=== PATIENT | male | born 1970 | race Caucasian/White ===

== ENCOUNTER 2016-11-13 09:49 | Observation (INO) ==
[2016-11-13] MEDS ORDERED: 0.9 % Sodium Chloride 1,000 ML IVC ONE (10:05)
[2016-11-13] MEDS ORDERED: Ondansetron 4 MG/2 ML VIAL IVP ONE (10:06)
--- NOTE | 2016-11-13 10:15 | Emergency Department Note ---
Disposition Clinical Impression: Bradycardia, Lightheadedness, Generalized weakness Disposition: Admitted As Inpatient Condition: Fair Time of Disposition: 14:00 General Adult HPI - General Chief complaint: ED Weakness Stated complaint: sweating, weakness x2 weeks Time Seen by Provider: 11/13/16 09:59 Source: patient Limitations: no limitations Nursing Notes Reviewed: Yes Vital Signs Reviewed: Yes - History of Present Illness HPI Narrative: Patient is a 45-year-old male past medical history for cardiac events or CVA. Patient complains of head pressure with pressure behind his eyes without vision changes, lightheadedness without dizziness, numbness tingling in bilateral upper extremities and fingertips, and left arm weakness intermittently. Patient currently not having symptoms but states the symptoms coming go randomly and lasts approximately 30 minutes. Patient also describes some facial flushing with events. Patient states he has had vertigo in the past and this does not feel like vertigo. Patient started on lisinopril for mild hypertension 2 weeks ago by his PCP. Patient still having symptoms. Patient admits to chewing tobacco use, but denies illicit drug use, alcohol use Pain Scale: 1 - Related Data Home Medications Medication Instructions Recorded Confirmed Lisinopril [Zestril] 5 mg PO DAILY 11/13/16 11/13/16 Loratadine [Claritin] 10 mg PO DAILY 11/13/16 11/13/16 Allergies Allergy/AdvReac Type Severity Reaction Status Date / Time No Known Allergies Allergy Verified 11/13/16 09:53 All systems ED: reviewed and negative except as stated. Review of Systems: As Per HPI Constitutional: Denies: fever Eyes: Denies: eye pain (Pressure behind eyes), vision change ENT ED: Denies: throat pain, congestion Cardiovascular: Reports: chest pain. Denies: palpitations Respiratory: Denies: cough, dyspnea, wheezes Gastrointestinal: Reports: nausea. Denies: abdominal pain, vomiting Genitourinary: Denies: urgency, dysuria, frequency Musculoskeletal: Denies: back pain, neck pain Integumentary: Denies: rash Neurological: Denies: headache (Head pressure but denies pain) Past Medical History - Past Medical History Attestation: Yes The following information was validated with the patient. Source: patient Medical history: Reports: no medical history, hypertension Psychiatric history: Reports: no psych history - Social History Smoking Status: Never smoker Smokeless Tobacco Status: Yes Alcohol use: Reports: occasionally Drug use: Reports: none Physical Exam - General Limitations: no limitations General appearance: alert - Head Head exam: atraumatic, normocephalic, normal inspection - Eye Eye exam: Present: normal appearance, PERRL, EOMI - ENT ENT exam: normal exam, normal oropharynx, mucous membranes moist - Neck Neck exam: Present: normal inspection, full ROM, trachea midline - Chest Chest inspection: Present: normal inspection, symmetric chest wall rise - Respiratory Respiratory exam: Present: normal lung sounds bilaterally - Cardiovascular Cardiovascular exam: Present: regular rate, normal rhythm, normal heart sounds - Abdominal Exam Abdominal exam: Present: soft, Non-Tender. Absent: tenderness, distention, guarding, rebound, rigidity - Extremities Exam Extremities exam: Present: normal inspection, full ROM. Absent: tenderness, pedal edema - Expanded Lower Extremity Exam Hip/Pelvis exam: Present: normal inspection, full ROM - Back Exam Back exam: Present: normal inspection, full ROM. Absent: tenderness - Neurological Exam Neurological exam: Present: alert, oriented X3, CN II-XII intact, normal gait. Absent: motor sensory deficit - Skin Skin exam: Present: warm, dry, intact, normal color Course - Reevaluation(s) Reevaluation #1: Labs and imaging ordered. Time: 10:20 Vital Signs Temperature 97.6 F 11/13/16 09:53 Pulse Rate 59 11/13/16 09:53 Respiratory Rate 20 11/13/16 09:53 Blood Pressure 153/95 11/13/16 09:53 O2 Sat by Pulse Oximetry 99 11/13/16 09:53 Temperature 98.0 F 11/13/16 18:49 Pulse Rate 59 11/13/16 18:49 Respiratory Rate 16 11/13/16 18:49 Blood Pressure 124/72 11/13/16 18:51 O2 Sat by Pulse Oximetry 98 11/13/16 18:49 Oxygen Delivery Oxygen Delivery Room Air Medical Decision Making - [facility] Narrative Medical decision making narrative: Patient concern for dysrhythmia causing transient weakness and near syncope. Patient's workup: Labs negative finding on CBC, BMP negative troponin, negative TSH. Chest x-ray showed no abnormalities. The patient still bradycardic rate of [address] elevations or depressions. Patient has accepted this is for admission for further workup. Advanced imaging: Chest X-Ray 11/13/16 10:06 IMPRESSION: No acute cardiopulmonary process D/ / 11/13/2016 10:45:53 Maximiliano Curiel MD / [facility] Interpreting Provider: Maximiliano Curiel MD Head CT 11/13/16 10:15 IMPRESSION: No acute intracranial abnormality. D/ / Nelson Erazo MD / Nelson Erazo MD Interpreting Provider: Nelson Erazo MD Patient was accepted for admission by Dr. Chow the hospitalist - Lab Data Lab results reviewed: Yes I reviewed the patient's lab results. Lab results narrative: Short CBC 11/13/16 Range/Units 10:36 WBC 5.3 (4.3-11.1) K/mcL Hgb 16.6 (12.9-16.9) g/dL Hct 48.5 (37.5-50.1) % Plt Count 163 (140-400) K/mcL Neutrophils # 3.6 (1.6-8.9) K/mcL BMP 11/13/16 Range/Units 10:36 Sodium 139 (136-145) mEq/L Potassium 4.1 (3.5-4.5) mEq/L Chloride 106 (98-109) mEq/L Carbon Dioxide 26 (19-29) mEq/L BUN 12 (8-26) mg/dL Creatinine 0.96 (0.72-1.25) mg/dL Glucose 89 (70-99) mg/dL Calcium 9.4 (8.6-10.8) mg/dL Cardiac Enzymes 11/13/16 Range/Units 10:36 Troponin I 0.01 (0-0.03) ng/mL Result diagrams: 11/13/16 10:36 11/13/16 10:36 Lab Results 11/13/16 11/13/16 11/13/16 Range/Units 10:36 10:36 10:36 WBC 5.3 (4.3-11.1) K/mcL RBC 5.89 H (4.19-5.50) M/mcL Hgb 16.6 (12.9-16.9) g/dL Hct 48.5 (37.5-50.1) % MCV 82.3 L (83.0-100.0) fL MCH 28.2 (28.0-33.3) pg MCHC 34.2 (31.6-35.5) g/dL RDW 12.7 (11.5-14.5) % Plt Count 163 (140-400) K/mcL MPV 10.3 (9.4-12.4) fL Immature Gran % 0.4 (0-4) % Seg Neutrophils % 68.3 % Lymphocytes % 22.4 % Monocytes % 7.7 % Eosinophils % 0.4 % Basophils % 0.8 % Neutrophils # 3.6 (1.6-8.9) K/mcL Lymphocytes # 1.2 (0.6-4.6) K/mcL Monocytes # 0.4 (0.0-1.3) K/mcL Eosinophils # 0.0 (0.0-0.6) K/mcL Basophils # 0.0 (0.0-0.2) K/mcL Sodium 139 (136-145) mEq/L Potassium 4.1 (3.5-4.5) mEq/L Chloride 106 (98-109) mEq/L Carbon Dioxide 26 (19-29) mEq/L BUN 12 (8-26) mg/dL Creatinine 0.96 (0.72-1.25) mg/dL Est GFR ( Amer) > 60 (> 60) Est GFR (Non-Af Amer) > 60 (> 60) BUN/Creatinine Ratio 13 (6-26) Glucose 89 (70-99) mg/dL Calculated Osmolality 287 (280-300) Calcium 9.4 (8.6-10.8) mg/dL Troponin I 0.01 (0-0.03) ng/mL Lipase (8-78) Units/L TSH 1.211 (0.350-4.840) mcIU/mL 11/13/16 Range/Units 10:36 WBC (4.3-11.1) K/mcL RBC (4.19-5.50) M/mcL Hgb (12.9-16.9) g/dL Hct (37.5-50.1) % MCV (83.0-100.0) fL MCH (28.0-33.3) pg MCHC (31.6-35.5) g/dL RDW (11.5-14.5) % Plt Count (140-400) K/mcL MPV (9.4-12.4) fL Immature Gran % (0-4) % Seg Neutrophils % % Lymphocytes % % Monocytes % % Eosinophils % % Basophils % % Neutrophils # (1.6-8.9) K/mcL Lymphocytes # (0.6-4.6) K/mcL Monocytes # (0.0-1.3) K/mcL Eosinophils # (0.0-0.6) K/mcL Basophils # (0.0-0.2) K/mcL Sodium (136-145) mEq/L Potassium (3.5-4.5) mEq/L Chloride (98-109) mEq/L Carbon Dioxide (19-29) mEq/L BUN (8-26) mg/dL Creatinine (0.72-1.25) mg/dL Est GFR ( Amer) (> 60) Est GFR (Non-Af Amer) (> 60) BUN/Creatinine Ratio (6-26) Glucose (70-99) mg/dL Calculated Osmolality (280-300) Calcium (8.6-10.8) mg/dL Troponin I (0-0.03) ng/mL Lipase 17 (8-78) Units/L TSH (0.350-4.840) mcIU/mL - Radiology Data Radiology results reviewed: Yes I reviewed the patient's radiology results. Chest X-Ray 11/13/16 10:06 IMPRESSION: No acute cardiopulmonary process D/ / 11/13/2016 10:45:53 [facility] Inter[facility] Provider: Maximiliano Curiel MD Head CT 11/13/16 10:15 IMPRESSION: No acute intracranial abnormality. D/ / Nelson Erazo MD / Nelson Erazo MD Interpreting Provider: Nelson Erazo MD - EKG Data EKG #1 EKG attestation: Yes I reviewed and interpreted this EKG. EKG results narrative: EKG taken today shows sinus bradycardia with no other abnormalities of heart block, ST elevation or depressions in leads, no Brugada, no [employer]
[2016-11-13 10:50] LABS: Basophils % 0.8 %; Eosinophils % 0.4 %; Hematocrit 48.5 % (37.5-50.1); Hemoglobin 16.6 g/dL (12.9-16.9); Immature Granulocytes % 0.4 % (0-4); Lymphocytes # 1.2 K/mcL (0.6-4.6); Lymphocytes % 22.4 %; Mean Corpuscular HGB Conc 34.2 g/dL (31.6-35.5); Mean Corpuscular Hemoglobin 28.2 pg (28.0-33.3); Mean Corpuscular Volume 82.3 fL (83.0-100.0); Mean Platelet Volume 10.3 fL (9.4-12.4); Monocytes # 0.4 K/mcL (0.0-1.3); Monocytes % 7.7 %; Neutrophils # 3.6 K/mcL (1.6-8.9); Platelet Count 163 K/mcL (140-400); Red Blood Count 5.89 M/mcL (4.19-5.50); Red Cell Distribution Width 12.7 % (11.5-14.5); Segmented Neutrophils % 68.3 %
[2016-11-13 11:02] LABS: BUN/Creatinine Ratio 13 (6-26); Blood Urea Nitrogen 12 mg/dL (8-26); Calcium 9.4 mg/dL (8.6-10.8); Carbon Dioxide 26 mEq/L (19-29); Chloride 106 mEq/L (98-109); Glucose 89 mg/dL (70-99); Osmolality,Calculated 287 (280-300); Potassium 4.1 mEq/L (3.5-4.5); Sodium 139 mEq/L (136-145); eGFR For African Americans > 60 (> 60); eGFR For Non-African Americans > 60 (> 60)
[2016-11-13 11:24] LABS: Thyroid Stimulating Hormone 1.211 mcIU/mL (0.350-4.840)
[2016-11-13] MEDS ORDERED: *HR* FentaNYL (PF) 100 MCG/2 ML VIAL IVP ONE (12:52)
--- NOTE | 2016-11-13 16:38 | Emergency Department Note ---
Disposition Clinical Impression: Bradycardia, Lightheadedness, Generalized weakness Disposition: Admitted As Inpatient Condition: Fair Time of Disposition: 14:00 General Adult HPI - General Chief complaint: ED Weakness Stated complaint: sweating, weakness x2 weeks Time Seen by Provider: 11/13/16 09:59 Source: patient Limitations: no limitations Nursing Notes Reviewed: Yes Vital Signs Reviewed: Yes - History of Present Illness HPI Narrative: 44-year-old male presents secondary to lightheadedness, weakness, symptoms of near syncope. Patient's been having the symptoms transiently. Patient was started on lisinopril 2 weeks ago by PCP for new onset hypertension. Patient continued to have lightheadedness now worsened to the point patient currently feels globally weak. Patient states he has been having blurry vision and numbness and tingling bilateral upper extremities. Patient states he has been having chest pain sharp and substernal intermittently but currently has no chest pain Pain Scale: 0 - Related Data Home Medications Medication Instructions Recorded Confirmed Lisinopril [Zestril] 5 mg PO DAILY 11/13/16 11/13/16 Loratadine [Claritin] 10 mg PO DAILY 11/13/16 11/13/16 Allergies Allergy/AdvReac Type Severity Reaction Status Date / Time No Known Allergies Allergy Verified 11/13/16 09:53 All systems ED: reviewed and negative except as stated. Review of Systems: As Per HPI Constitutional: Denies: fever Eyes: Denies: eye pain (Pressure behind eyes), vision change ENT ED: Denies: throat pain, congestion Cardiovascular: Reports: chest pain. Denies: palpitations Respiratory: Denies: cough, dyspnea, wheezes Gastrointestinal: Reports: nausea. Denies: abdominal pain, vomiting Genitourinary: Denies: urgency, dysuria, frequency Musculoskeletal: Denies: back pain, neck pain Integumentary: Denies: rash Neurological: Denies: headache (Head pressure but denies pain) Past Medical History - Past Medical History Attestation: Yes The following information was validated with the patient. Source: patient Medical history: Reports: no medical history, hypertension Psychiatric history: Reports: no psych history - Social History Smoking Status: Never smoker Smokeless Tobacco Status: Yes Alcohol use: Reports: occasionally Drug use: Reports: none Physical Exam - General Limitations: no limitations General appearance: alert - Head Head exam: atraumatic, normocephalic, normal inspection - Eye Eye exam: Present: normal appearance, PERRL, EOMI - ENT ENT exam: normal exam, normal oropharynx, mucous membranes moist - Neck Neck exam: Present: normal inspection, full ROM, trachea midline - Chest Chest inspection: Present: normal inspection, symmetric chest wall rise - Respiratory Respiratory exam: Present: normal lung sounds bilaterally - Cardiovascular Cardiovascular exam: Present: normal rhythm, bradycardia, normal heart sounds - Abdominal Exam Abdominal exam: Present: soft, Non-Tender. Absent: tenderness, distention, guarding, rebound, rigidity - Extremities Exam Extremities exam: Present: normal inspection, full ROM. Absent: tenderness, pedal edema - Expanded Lower Extremity Exam Hip/Pelvis exam: Present: normal inspection, full ROM Upper leg exam: Present: normal inspection, full ROM Knee exam: Present: normal inspection, full ROM Lower leg exam: Present: normal inspection, full ROM Ankle exam: Present: normal inspection, full ROM Foot/toe exam: Present: normal inspection, full ROM Neurovascular/Tendon exam: Absent: motor deficit, sensory deficit, tendon deficit - Neurological Exam Neurological exam: Present: alert, oriented X3, CN II-XII intact, reflexes normal. Absent: motor sensory deficit - Expanded Neurological Exam Patient oriented to: Present: person, place, time Speech: Present: fluid speech Cerebellar function: finger to nose: Normal, heel to garcia: Normal Motor strength - LUE: 5/5 Motor strength - RUE: 5/5 Motor strength - LLE: 5/5 Motor strength - RLE: 5/5 Upper motor neuron exam: chloe neglect: Absent bilaterally, pronator drift: Absent bilaterally, Babinski sign: Absent bilaterally, sensory extinction: Absent bilaterally Sensory exam upper extremity: light touch: Normal, pin prick: Normal, temperature: Normal, 2 point discrimination: Normal Sensory exam lower extremity: light touch: Normal, pin prick: Normal, temperature: Normal, 2 point discrimination: Normal DTR: bicep (L): 2+, bicep (R): 2+, brachioradialis (L): 2+, brachioradialis (R) : 2+, tricep (L): 2+, tricep (R): 2+, patellar (L): 2+, patellar (R): 2+, Achilles tendon (L): 2+, Achilles tendon (R): 2+ Course Vital Signs Temperature 97.6 F 09/01/17 09:53 Pulse Rate 59 11/13/16 09:53 Respiratory Rate 20 11/13/16 09:53 Blood Pressure 153/95 11/13/16 09:53 O2 Sat by Pulse Oximetry 99 11/13/16 09:53 Temperature 98.0 F 11/13/16 18:49 Pulse Rate 59 11/13/16 18:49 Respiratory Rate 16 11/13/16 18:49 Blood Pressure 124/72 11/13/16 18:51 O2 Sat by Pulse Oximetry 98 11/13/16 18:49 Oxygen Delivery Oxygen Delivery Room Air Medical Decision Making - MDM Narrative Medical decision making narrative: Patient concerned dysrhythmia leading to presyncopal symptoms of lightheadedness , weakness and feelings of wanting to pass out. Patient found to have bradycardia. Patient started on IV normal saline 1 L. Patient currently not having any pain. Patient's lab workup was unremarkable. Negative troponin negative TSH. Chest x-ray and CT were unremarkable. Patient being admitted for further workup for bradycardia, generalized weakness, lightheadedness. Patient was has agrees to treatment plan. Patient's patient is accepted for admission by hospitalist . - Lab Data Lab results reviewed: Yes I reviewed the patient's lab results. Lab results narrative: Short CBC 11/13/16 Range/Units 10:36 WBC 5.3 (4.3-11.1) K/mcL Hgb 16.6 (12.9-16.9) g/dL Hct 48.5 (37.5-50.1) % Plt Count 163 (140-400) K/mcL Neutrophils # 3.6 (1.6-8.9) K/mcL BMP 11/13/16 Range/Units 10:36 Sodium 139 (136-145) mEq/L Potassium 4.1 (3.5-4.5) mEq/L Chloride 106 (98-109) mEq/L Carbon Dioxide 26 (19-29) mEq/L BUN 12 (8-26) mg/dL Creatinine 0.96 (0.72-1.25) mg/dL Glucose 89 (70-99) mg/dL Calcium 9.4 (8.6-10.8) mg/dL Cardiac Enzymes 11/13/16 Range/Units 10:36 Troponin I 0.01 (0-0.03) ng/mL Result diagrams: 11/13/16 10:36 11/13/16 10:36 Lab Results 11/13/16 11/13/16 11/13/16 Range/Units 10:36 10:36 10:36 WBC 5.3 (4.3-11.1) K/mcL RBC 5.89 H (4.19-5.50) M/mcL Hgb 16.6 (12.9-16.9) g/dL Hct 48.5 (37.5-50.1) % MCV 82.3 L (83.0-100.0) fL MCH 28.2 (28.0-33.3) pg MCHC 34.2 (31.6-35.5) g/dL RDW 12.7 (11.5-14.5) % Plt Count 163 (140-400) K/mcL MPV 10.3 (9.4-12.4) fL Immature Gran % 0.4 (0-4) % Seg Neutrophils % 68.3 % Lymphocytes % 22.4 % Monocytes % 7.7 % Eosinophils % 0.4 % Basophils % 0.8 % Neutrophils # 3.6 (1.6-8.9) K/mcL Lymphocytes # 1.2 (0.6-4.6) K/mcL Monocytes # 0.4 (0.0-1.3) K/mcL Eosinophils # 0.0 (0.0-0.6) K/mcL Basophils # 0.0 (0.0-0.2) K/mcL Sodium 139 (136-145) mEq/L Potassium 4.1 (3.5-4.5) mEq/L Chloride 106 (98-109) mEq/L Carbon Dioxide 26 (19-29) mEq/L BUN 12 (8-26) mg/dL Creatinine 0.96 (0.72-1.25) mg/dL Est GFR ( Amer) > 60 (> 60) Est GFR (Non-Af Amer) > 60 (> 60) BUN/Creatinine Ratio 13 (6-26) Glucose 89 (70-99) mg/dL Calculated Osmolality 287 (280-300) Calcium 9.4 (8.6-10.8) mg/dL Troponin I 0.01 (0-0.03) ng/mL Lipase (8-78) Units/L TSH 1.211 (0.350-4.840) mcIU/mL 11/13/16 Range/Units 10:36 WBC (4.3-11.1) K/mcL RBC (4.19-5.50) M/mcL Hgb (12.9-16.9) g/dL Hct (37.5-50.1) % MCV (83.0-100.0) fL MCH (28.0-33.3) pg MCHC (31.6-35.5) g/dL RDW (11.5-14.5) % Plt Count (140-400) K/mcL MPV (9.4-12.4) fL Immature Gran % (0-4) % Seg Neutrophils % % Lymphocytes % % Monocytes % % Eosinophils % % Basophils % % Neutrophils # (1.6-8.9) K/mcL Lymphocytes # (0.6-4.6) K/mcL Monocytes # (0.0-1.3) K/mcL Eosinophils # (0.0-0.6) K/mcL Basophils # (0.0-0.2) K/mcL Sodium (136-145) mEq/L Potassium (3.5-4.5) mEq/L Chloride (98-109) mEq/L Carbon Dioxide (19-29) mEq/L BUN (8-26) mg/dL Creatinine (0.72-1.25) mg/dL Est GFR ( Amer) (> 60) Est GFR (Non-Af Amer) (> 60) BUN/Creatinine Ratio (6-26) Glucose (70-99) mg/dL Calculated Osmolality (280-300) Calcium (8.6-10.8) mg/dL Troponin I (0-0.03) ng/mL Lipase 17 (8-78) Units/L TSH (0.350-4.840) mcIU/mL - Radiology Data Radiology results reviewed: Yes I reviewed the patient's radiology results. Chest X-Ray 11/13/16 10:06 IMPRESSION: No acute cardiopulmonary process D/ / 11/13/2016 10:45:53 Maximiliano Curiel MD / [facility] Interpreting Provider: Maximiliano Curiel MD Head CT 11/13/16 10:15 IMPRESSION: No acute intracranial abnormality. D/ / Nelson Erazo MD / Nelson Erazo MD Interpreting Provider: Nelson Erazo MD Attestation Statement - Attestation Attestation: I examined this patient and my medical decision-making was reviewed with the Resident Physician. I agree with the documented findings, disposition and treatment plan as described except to the extent set forth below. In summary 45 -year-old male with sweating and weakness. Fundi have bradycardia. Symptoms possibly related to bradycardia. We will admit for cardiology consultation.
[2016-11-13] MEDS ORDERED: Naloxone 0.4 MG/ML INJ IVP PRN (17:05)
[2016-11-13] MEDS ORDERED: *HR* HYDROcodone/Acet 5/325 mg TABLET PO PRN (17:05)
[2016-11-13] MEDS ORDERED: *HR* Morphine 2 MG/ML SYRINGE IVP PRN (17:05)
[2016-11-13] MEDS ORDERED: Acetaminophen 325 MG TABLET PO PRN (17:05)
[2016-11-13] MEDS ORDERED: Ondansetron 4 MG/2 ML VIAL IVP PRN (17:05)
[2016-11-13] MEDS: Pantoprazole 40 MG VIAL IVP SCH (17:47)
[2016-11-13] MEDS: amLODIPine 5 MG TABLET PO SCH (17:48)
--- NOTE | 2016-11-13 22:53 | Internal Med History&Physical ---
Date of Encounter: 11/14/16 Time of Encounter: 16:00 Assessment and Plan (1) HTN (hypertension) Current visit: Yes Status: Acute Patient presents with newly diagnosed hypertension two weeks ago. Patient reports he was placed on 5 mg of lisinopril daily by his PCP 2 weeks ago. Patient reports his symptoms of shakiness, weakness, and lightheadedness began approximately 2 weeks ago as well. Patient denies previous history of cardiac issues or events. Echocardiogram ordered. Cardiology consult ordered and discussed with Dr. Phillips. Will hold patient's lisinopril and replace with amlodipine 5 mg daily. Monitor patient and VS. Qualifiers: Hypertension type: essential hypertension Qualified Code(s): I10 - Essential (primary) hypertension (2) Bradycardia Current visit: Yes Status: Acute Patient presents with acute bradycardia upon admission. HR is 59 in ED. Patient' s initial troponin 0.01. Patient placed on continuous cardiac telemetry. Trend troponins x2. Monitor patient and VS. Cardiology consult ordered and discussed with Dr. Phillips. (3) Generalized weakness Current visit: Yes Status: Acute Patient reports acute generalized weakness for the past two weeks since being placed on lisinopril daily for HTN. Orthostatic BPs and vital signs ordered. Falls precautions/up with assist/bed rest with bathroom privileges with assist only ordered. Bilateral carotid Doppler duplex imaging ordered. (4) Lightheadedness Current visit: Yes Status: Acute Patient presents with acute lightheadedness for the past two weeks since being placed on lisinopril for HTN. Patient states he takes his medication HS. Orthostatic BPs and vital signs ordered. Falls precautions/up with assist/bed rest with bathroom privileges with assist only ordered. Bilateral carotid Doppler duplex imaging ordered. (5) DVT prophylaxis Current visit: Yes Status: Acute Patient placed on DVT prophylaxis due to current admission protocol and current symptoms. Heparin 5,000 units SQ Q8 ordered. Internal Medicine - H&P: HPI Chief complaint: Weakness and Dizziness Admitted From: Emergency Dept Plans for Post Hospital Care: Home History of present illness: Mr. Maki is a 45 year old male presents from ED with chief complaint of shakiness and weakness in his bilateral legs arms and hands. The past 2 weeks. Patient also reports he has pressure in his head that comes and goes. She reports he had vertigo in the past but this does not feel like previous vertigo. Patient was placed on lisinopril 5 mg daily by his PCP two weeks ago when symptoms began. Patient denies smoking but admits to chewing tobacco use. Patient also denies illicit drug use and alcohol use. Patient currently denies recent illness, nausea, vomiting, fever, shortness of breath, cough,, chest pain, palpitations, abdominal pain, vision changes, presyncope, or syncope. Patient denies any previous cardiac history or events. Patient's only medical history includes hypertension. Patient has no known allergies. Patient is hemodynamically stable and denies any discomfort at this time. Information obtained from patient, chart review, and previous medical reports. Patient is a moderate risk for cardiac event based on current symptoms and risk factor of new onset of hypertension and will be placed as observation status. Time spent with patient >40 minutes. Past Med Surg Social Fam HX - Past Medical History Source: patient, old records reviewed Medical history: hypertension Psychiatric history: no psych history - Past Surgical History Surgical History: no surgical history - Social History Smoking Status: Never smoker Smokeless Tobacco Status: Yes Alcohol use: occasionally Drug use: none Occupational status: employed Current living situation: Home Activity Level: Independent ambulation, Very active Recent Out of Country Travel Within the Last 8 Weeks: No Exposure or Possible Exposure to Illness During Travel: No - Family History Mother Race: Family Member Ethnicity: Non- Living Status: Still Living Hx Family Cancer: Yes (Breast cancer) Father Race: Family Member Ethnicity: Non- Living Status: Still Living Hx Family Cardiac Disorders: Yes (HTN) Brother Race: Family Member Ethnicity: Non- Living Status: Still Living Hx Family Cardiac Disorders: Yes (Phlebitis) Sister Race: Family Member Ethnicity: Non- Living Status: Still Living Hx Family Medical Disorders: No Internal Medicine - H&P: Meds Lisinopril [Zestril] 5 mg PO DAILY 11/13/16 [History] Loratadine [Claritin] 10 mg PO DAILY 11/13/16 [History] 3 Allergy/AdvReac Type Severity Reaction Status Date / Time No Known Allergies Allergy Verified 11/13/16 09:53 All Systems PM: A 10-system review of systems was performed and is negative for pertinent findings except as documented above in the HPI. - Constitutional Constitutional: no chills, no fever(s), no night sweats - EENT Eyes: no change in vision, no discharge, no pain, no photophobia Ears: no ear discharge, no ear pain, no tinnitus Nose, mouth and throat: no dysphagia, no nasal discharge, no neck pain, no sore throat - Breasts Breasts: as per HPI - Cardiovascular Cardiovascular ROS IM: as per HPI, lightheadedness, no chest pain, no diaphoresis, no dyspnea, no palpitations, no syncope - Respiratory Respiratory: no cough, no dyspnea, no wheezing, no excessive phlegm production - Gastrointestinal Gastrointestinal: no abdominal pain, no diarrhea, no hematemesis, no hematochezia, no melena, no nausea, no vomiting - Genitourinary Genitourinary ROS male: as per HPI - Musculoskeletal Musculoskeletal ROS IM: no numbness, no tingling - Integumentary Integumentary IM: no rash, no unusual bruising - Neurological Neurological ROS: as per HPI, disequilibrium, dizziness, headache(s) (Pressure in head) - Psychiatric Psychiatric: as per HPI - Endocrine Endocrine IM: as per HPI - Hematologic/Lymphatic Hematologic/Lymphatic: no easy bruising - Allergic/Immunologic Allergic/Immunologic: as per HPI - Constitutional Vitals: Temp Pulse Resp BP Pulse Ox 98.0 F 59 16 124/72 98 11/13/16 18:49 11/13/16 18:49 11/13/16 18:49 11/13/16 18:51 11/13/16 18:49 General appearance: Present: cooperative, A&O X 3, pleasant, no acute distress, answers questions appropriately - Head Head exam: Present: atraumatic, normocephalic - Eye Eye exam: Present: PERRL, conjuntiva pink, sclera anicteric Pupils: Present: PERRL - ENT ENT exam: Present: normal exam, normal external ear exam - Neck Neck exam general surgery: Present: normal inspection, supple, trachea midline. Absent: lymphadenopathy - Respiratory Respiratory exam: Present: CTAB. Absent: accessory muscle use, rales, rhonchi, wheezes - Cardiovascular Cardiovascular exam: Present: RRR, +S1, +S2. Absent: diastolic murmur, gallop, rubs, systolic murmur - GI/Abdominal GI/Abdominal exam: Present: normal bowel sounds, soft, no peritoneal signs. Absent: distended, tenderness - Rectal Rectal exam: Present: deferred - Additional comments: exam deferred. - Extremities Exam Extremities exam: Present: warm, radial pulses palpable and symmetrical. Absent : calf tenderness, cyanotic, pedal edema - Back Exam Back exam: Present: normal inspection - Neurological Exam Neurological exam: Present: CN II-XII intact, oriented X3, no focal deficits. Absent: pronater drift, facial droop, speech deficit - Psychiatric Psychiatric exam: Present: normal affect, normal mood - Skin Skin exam: Present: dry, intact Internal Med - H&P Results - Labs CBC & Chem 7: 11/13/16 10:36 11/13/16 10:36 - EKG Data EKG shows normal: sinus rhythm Rate: bradycardia - EKG Data Prior EKG available for review: yes When compared to previous EKG: there is no significant change EKG comments: 11/13/16 23:46 EKG dated 07/12/15 shows sinus rhythm. EKG dated 11/13/16 shows sinus bradycardia with incomplete right bundle branch block. - Diagnostic Studies Chest x-ray Additional comments: Impressions Chest X-Ray 11/13/16 10:06 IMPRESSION: No acute cardiopulmonary process D/ / 11/13/2016 10:45:53 Maximiliano Curiel MD / [facility] Interpreting Provider: Maximiliano Curiel MD CT scan - head Additional comments: Impressions Head CT 11/13/16 10:15 IMPRESSION: No acute intracranial abnormality. D/ / Nelson Erazo MD / Nelson Erazo MD Interpreting Provider: Nelson Erazo MD
[2016-11-14] MEDS: Aspirin Enteric Coated 81 MG Tablet PO SCH ×2 (00:46→12:10)
[2016-11-14] MEDS: *HR* Heparin 5,000 UNIT/ML VIAL SQ SCH ×2 (00:46→06:32)
[2016-11-14 03:08] LABS: Hematocrit 45.8 % (37.5-50.1); Hemoglobin 15.7 g/dL (12.9-16.9); Mean Corpuscular HGB Conc 34.3 g/dL (31.6-35.5); Mean Corpuscular Volume 81.8 fL (83.0-100.0); Mean Platelet Volume 10.8 fL (9.4-12.4); Platelet Count 171 K/mcL (140-400); Red Cell Distribution Width 12.8 % (11.5-14.5); Segmented Neutrophils % 61.6 %
[2016-11-14 03:09] LABS: Basophils % 0.6 %; Eosinophils # 0.1 K/mcL (0.0-0.6); Eosinophils % 1.3 %; Immature Granulocytes % 0.3 % (0-4); Lymphocytes % 29.7 %; Monocytes # 0.5 K/mcL (0.0-1.3); Monocytes % 6.5 %; Neutrophils # 4.2 K/mcL (1.6-8.9)
[2016-11-14 03:16] LABS: Hemoglobin A1C 5.1 %
[2016-11-14 03:19] LABS: Prothrombin Time 10.9 Seconds (9.4-12.1)
[2016-11-14 03:21] LABS: Activated Partial Thrombo Time 29.6 Seconds (26.0-36.0)
[2016-11-14 03:24] LABS: BUN/Creatinine Ratio 13 (6-26); Blood Urea Nitrogen 12 mg/dL (8-26); Calcium 8.8 mg/dL (8.6-10.8); Carbon Dioxide 25 mEq/L (19-29); Chloride 107 mEq/L (98-109); Chol/HDL Ratio 4.9 (0-4.9); Glucose 94 mg/dL (70-99); HDL Cholesterol 31 mg/dL (40-59); LDL Cholesterol,Calculated 107 mg/dL (0-99); Magnesium 1.8 mg/dL (1.6-2.6); Osmolality,Calculated 288 (280-300); Potassium 3.8 mEq/L (3.5-4.5); Sodium 139 mEq/L (136-145); Triglycerides 70 mg/dL (< 150); eGFR For African Americans > 60 (> 60); eGFR For Non-African Americans > 60 (> 60)
[2016-11-14 03:26] LABS: Cholesterol 152 mg/dL (< 200)
[2016-11-14] MEDS: Pantoprazole 40 MG VIAL IVP SCH (08:51)
[2016-11-14] MEDS ORDERED: Loratadine 10 MG TABLET PO SCH (09:00)
[2016-11-14 12:05] VITALS: BP 118/80
[2016-11-14] MEDS: amLODIPine 5 MG TABLET PO SCH (12:10)
--- NOTE | 2016-11-14 12:20 | Electrophysiology Consult Note ---
Date of Encounter: 11/14/16 Time of Encounter: 12:18 Assessment and Plan (1) Bradycardia Current Visit: Yes Status: Acute Likely secondary to vasovagal episode. (2) Lightheadedness Current Visit: Yes Status: Acute Appears to be vasovagal. Instructed to increase fluid and some salt cautiously. Avoid caffeine. Avoid vasodilators. Discussion w patient/family: The assessment and plan as outlined above was discussed with the patient and/or family members who expressed understanding and agreement. All questions were answered. Thank you for involving us in the care of your patient. Please call with any questions. History of Present Illness Consult date: 11/14/16 Requesting physician: Darcy Higginbotham Consult reason: Dizziness, bradycardia History of present illness: Mr. Maki is a 45 year old male presents with several episodes of headache, diaphoresis, dizziness. Recently restarted BP meds. Past Med Surg Social Fam HX - Past Medical History Medical history: hypertension Psychiatric history: no psych history - Past Surgical History Surgical History: no surgical history - Social History Smoking Status: Never smoker Smokeless Tobacco Status: Yes Alcohol use: occasionally Drug use: none - Family History Mother Race: Family Member Ethnicity: Non- Living Status: Still Living Hx Family Cancer: Yes (Breast cancer) Father Race: Family Member Ethnicity: Non- Living Status: Still Living Hx Family Cardiac Disorders: Yes (HTN) Brother Race: Family Member Ethnicity: Non- Living Status: Still Living Hx Family Cardiac Disorders: Yes (Phlebitis) Sister Race: Family Member Ethnicity: Non- Living Status: Still Living Hx Family Medical Disorders: No Medications and Allergies Lisinopril [Zestril] 5 mg PO DAILY 11/13/16 [History] Loratadine [Claritin] 10 mg PO DAILY 11/13/16 [History] 3 Allergy/AdvReac Type Severity Reaction Status Date / Time No Known Allergies Allergy Verified 11/13/16 09:53 All Systems Review: A 10-system review of systems was performed and is negative for pertinent findings except as documented above in the HPI. Physical Examination Vital Signs, Last 4 Hours Temp Pulse Resp BP Pulse Ox 11/14/16 12:02 97.8 F 57 16 118/80 96 General: Conversant, No Apparent Distress HEENT: Atraumatic, Normocephaly, Mucus Membranes Moist Neck: No JVD, Normal carotid pulses Cardiac: Reg Rate and Rhythm, Normal S1 and S2, No Murmur Lungs: Normal Breath Sounds, No Wheeze, Rales, Rhonchi Neuro: Alert and responsive, No focal deficits noted Abdomen: Soft, Non-Tender Skin: No rashes noted on visualized skin Musculoskeletal: No Chest Wall Tenderness Extremities: No Clubbing, No Cyanosis, No Edema, Normal Pulses Results 11/14/16 02:29 11/14/16 02:29 Lab Results 11/14/16 11/14/16 11/14/16 02:29 02:29 02:29 WBC 6.9 Hgb 15.7 Hct 45.8 Plt Count 171 INR 1.0 APTT 29.6 Sodium 139 Potassium 3.8 Chloride 107 Carbon Dioxide 25 BUN 12 Creatinine 0.93 Glucose 94 Calcium 8.8 Magnesium 1.8 - EKG Interpretation EKG results cardiology: personally reviewed (Mild sinus bradycardia) Consult Discharge Plan - Plan Referrals: Allyson Walker CNP [Primary Care Provider] -
--- NOTE | 2016-11-14 12:56 | Discharge Summary ---
Date of Encounter: 11/14/16 Time of Encounter: 08:15 - Discharge Diagnosis (1) Bradycardia Priority: Primary Status: Acute Comments: Patient reports nausea, lightheadedness, weakness, diffuse head pressure and shortness of breath intermittently for the last couple of weeks. He states that he becomes worse with driving. He denies chest pain. Cardiology has consulted, recommending decreasing caffeine and stimulants, increasing water. Most likely due to vasovagal episode. Labs are within normal limits. Prominence negative 3. EKG shows sinus bradycardia without ST changes. Hemoglobin A1c is 5.1. TSH 1.211. Carotid duplex appears within normal limits bilaterally. Agree with cardiology, patient works outside and may not be drinking enough fluid. Encourage increase fluids decrease in caffeine. Changing position slowly. (2) Lightheadedness Priority: Secondary Status: Acute Comments: Plan as above. Orthostatics negative. Echocardiogram with LVEF of 60-65%, normal LV systolic function, normal diastolic function of the left ventricle, no significant valvular dysfunction. (3) Generalized weakness Priority: Secondary Status: Acute Comments: Patient denies today. Most likely related to bradycardia and lightheadedness. States he feels better today. Plan as above (4) HTN (hypertension) Priority: Secondary Status: Acute Comments: New onset, patient just started lisinopril 5 mg by mouth daily. Will continue at home. Blood pressure has been well controlled. Qualifiers: Hypertension type: essential hypertension Qualified Code(s): I10 - Essential (primary) hypertension (5) DVT prophylaxis Priority: Primary Status: Acute Comments: Patient is ambulatory. Heparin subcutaneous. - Discharge Medications Home Medications: Lisinopril [Zestril] 5 mg PO DAILY 11/13/16 [History] Loratadine [Claritin] 10 mg PO DAILY 11/13/16 [History] Allergies/Adverse Reactions: 3 Allergy/AdvReac Type Severity Reaction Status Date / Time No Known Allergies Allergy Verified 11/13/16 09:53 Procedures/tests Complete & Pending: Procedures Performed prior 72 hours Category Date Time Status EV carotid duplex imaging BI Routine Y 11/13/16 17:18 Completed EV echocardiogram Routine Y 11/13/16 17:17 Completed Date of admission: 11/13/16 13:58 Primary care physician: Allyson Walker, Consults: 11/13/16 17:21 Consult to Cardiology [CONS] Routine Comment: Consulting Provider: Cardiology Gissel Reason for Consult: Patient was placed on lisinopril 1 week ago and is now experiencing bradycardia and dizziness. BP in ED 153/95. Echocardiogram and Bilateral carotids ordered. Lisinopril held and amlodipine 5 mg ordered. Call Completed: Yes Discharging clinician: Darcy Higginbotham Anticipated date of discharge: 11/14/16 - Patient Status Disposition: Home, Self-Care Condition: Good Functional capacity at discharge: independent ambulation Overall status at discharge: patient is back to baseline - Discharge Instructions Follow Up With: Allyson Walker, KAYDEN [Primary Care Provider] - Additional Instructions: Follow-up with your primary care physician in the next 7-10 days for a follow- up visit. Per cardiology's recommendation, increase your fluid intake daily and increase salt cautiously, avoid caffeine, change positions slowly. Continue your normal home medications. Resume your activities as tolerated Return to the emergency department if you have any other problems or concerns, or if your symptoms return or worsen. - Diet and Activity Activity: increase activity as tolerated, return to work once cleared by your PCP/specialist Hospital course: Mr. Maki is a 45 year old male with past medical history of recent diagnosis of hypertension, smokeless tobacco use. He presented from ED with chief complaint of nausea, lightheadedness, and weakness in his bilateral legs arms and hands for the past 2 weeks. Patient also reports he has pressure in his head that comes and goes, as well as nausea. He reports he had vertigo in the past but this does not feel like previous vertigo. Patient was placed on lisinopril 5 mg daily by his PCP two weeks ago when symptoms began. Patient denies smoking but admits to smokeless tobacco use daily. Patient also denies illicit drug use and alcohol use. Patient currently denies recent illness, nausea, vomiting, fever, shortness of breath, cough,, chest pain, palpitations, abdominal pain, vision changes, presyncope, or syncope. Physical exam was unremarkable, pulse was 68 apically and radial. Echocardiogram showed LVEF of 60-65% with normal LV systolic function, normal LV diastolic function, as well as no significant valvular dysfunction. Patient had bilateral carotid Doppler exam, there were normal throughout bilaterally. Patient denies chest pain. Chest x-ray was negative, troponins were negative. Head CT was negative for any acute intracranial abnormality. Electrolyte are within normal limits, A1c is 5.1, troponin is negative, TSH is 1.211. Patient was evaluated by cardiology, EP consultation. They feel the episodes are most likely due to vasovagal episodes and they have instructed the patient to increase his fluid and some salt cautiously, avoid caffeine and vasodilators. I have instructed patient to make sure the history in plenty of fluid while he was working and change positions slowly. Have instructed him to increase sodium a little bit daily. He verbalized understanding and states that he feels better. He will continue his lisinopril at home. His labs are within normal limits, his pulse remains in the high 50s and mid 60s. Patient denies shortness of breath, nausea, vomiting, diarrhea, diaphoresis, chest pain, headache, blurred vision, weakness, syncope or presyncope since prior to arrival. Blood pressure is stable within normal limits. O2 sat on room air is in mid to high 90s. He is appropriate for discharge. Time spent discussing smoking cessation with patient: 3 to 10 minutes - Time Spent with Patient Total time spent providing and/or coordinating discharge services: Less than 30 minutes - Constitutional Vitals: Temp Pulse Resp BP Pulse Ox 97.8 F 57 16 118/80 96 11/14/16 12:02 11/14/16 12:02 11/14/16 12:02 11/14/16 12:11/14/16 12:02 General appearance: Present: cooperative, A&O X 3, pleasant, no acute distress, answers questions appropriately - Head Head exam: Present: atraumatic, normal inspection, normocephalic - Eye Eye exam: Present: normal appearance, conjuntiva pink, sclera anicteric - Neck Neck exam general surgery: Present: supple, trachea midline. Absent: lymphadenopathy, tenderness - Respiratory Respiratory exam: Present: CTAB. Absent: accessory muscle use, rales, rhonchi, wheezes - Cardiovascular Cardiovascular exam: Present: RRR, +S1, +S2. Absent: diastolic murmur, gallop, rubs, systolic murmur - GI/Abdominal GI/Abdominal exam: Present: normal bowel sounds, soft. Absent: distended, hernia, hepatomegaly, tenderness - Extremities Exam Extremities exam: Present: normal capillary refill, normal inspection, warm, radial pulses palpable and symmetrical. Absent: calf tenderness, cyanotic, pedal edema, tenderness - Neurological Exam Neurological exam: Present: alert, oriented X3, no focal deficits, strengths equal and symetr throughout. Absent: motor sensory deficit, facial droop, speech deficit - Skin Skin exam: Present: dry, intact, normal color, warm. Absent: rash, urticaria
--- NOTE | 2016-11-17 08:07 | Carotid Imaging Report ---
Carotid Duplex Patient Name:Connor Maki Order Number:[id number] Procedure Date:11/13/2016 Date:1970Age:45 yrs Gender:Male Lt BP:124 / 72 mmHg Rt.BP:133 / 81 mmHgHeart Rate: Location:[facility] Room #: 3B23 Health Professional:Sherry Nunez Referring MD:Rick Howell CNP land agent:Allyson Walker CNP Reading MD:Cristóbal Fuentes MD Primary Indications:Dizziness Risk Factors Yes/No Hypertension Yes Impressions: The bilateral carotid arteries are normal throughout. Recommendations: After imaging the patient returned to their room. Findings Carotid Duplex: Carcamo scale imaging combined with Doppler flow analysis suggests normal findings bilaterally. Right: The right proximal common carotid artery has a PSV of 86 cm/s and a EDV of 23 cm/s. The right mid common carotid artery has a PSV of 80 cm/s and a EDV of 20 cm/s. The right distal common carotid artery has a PSV of 91 cm/s and a EDV of 24 cm/s. The right bifurcation has a PSV of 72 cm/s and a EDV of 24 cm/s. The right proximal internal carotid artery has a PSV of 74 cm/s and a EDV of 23 cm/s. The right mid internal carotid artery has a PSV of 78 cm/s and a EDV of 27 cm/s. The right distal internal carotid artery has a PSV of 71 cm/s and a EDV of 26 cm/s. The right eca has a PSV of 106 cm/s and a EDV of 18 cm/s. The right vertebral artery has a PSV of 39 cm/s and a EDV of 9 cm/s. Left: The left proximal common carotid artery has a PSV of 77 cm/s and a EDV of 21 cm/s. The left mid common carotid artery has a PSV of 101 cm/s and a EDV of 26 cm/s. The left distal common carotid artery has a PSV of 92 cm/s and a EDV of 27 cm/s. The left bifurcation has a PSV of 68 cm/s and a EDV of 22 cm/s. The left proximal internal carotid artery has a PSV of 75 cm/s and a EDV of 24 cm/s. The left mid internal carotid artery has a PSV of 66 cm/s and a EDV of 28 cm/s. The left distal internal carotid artery has a PSV of 64 cm/s and a EDV of 25 cm/s. The left eca has a PSV of 69 cm/s and a EDV of 12 cm/s. The left vertebral artery has a PSV of 54 cm/s and a EDV of 16 cm/s. Prior Study: No prior study available for comparison. Carotid Results Right PSV EDV Assessment Proximal CCA 86 23 Normal Mid CCA 80 20 Normal Distal CCA 91 24 Normal Bifurcation 72 24 Normal Proximal ICA 74 23 Normal Mid ICA 78 27 Normal Distal ICA 71 26 Normal ECA 106 18 Normal Vertebral Artery 39 9 Normal Left PSV EDV Assessment Proximal CCA 77 21 Normal Mid CCA 101 26 Normal Distal CCA 92 27 Normal Bifurcation 68 22 Normal Proximal ICA 75 24 Normal Mid ICA 66 28 Normal Distal ICA 64 25 Normal ECA 69 12 Normal Vertebral Artery 54 16 Normal Ratio's Right ICA/CCA Ratio: 0.98 ICA/CCA Values: 78/80 Left ICA/CCA Ratio: 0.74 ICA/CCA Values: 75/101 Updated by Cristóbal Fuentes MD on 11/14/2016 9:59:45 AM electronically signed on 11/14/2016 9:59:57 AM with status of Final
--- NOTE | 2016-11-17 08:14 | Electrocardiograph Report ---
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
== END 2016-11-14 13:30 | disposition home or self-care (01) ==
LOC: EMEROO 09:49 → 3BNU 09:49
PROVIDERS: ADMIT Internal Medicine; ATTEND Registered Nurse